=== PATIENT | male | born 1980 | race Caucasian/White ===

== ENCOUNTER → 2017-11-05 | Outpatient (CLI) | payer BC ==
[~2017-11-05] MED LIST: CALAMINE LOTIO177 ML TP; DEXILANT60 MG PO; LAMICTAL100 MG PO; PREDNISONE20 MG PO; SERTRALINE HCL100 MG PO; ZANTAC150 MG PO; ZYRTEC10 MG PO
--- NOTE | 2017-11-05 14:52 | Diagnostic Imaging Report ---
Indications: Left-sided testicular pain Technique: Grayscale and duplex images of the scrotum Comparison: none Findings:The right testicle measures 5cm in length by 2 cm AP by 4.2 cm transverse. It demonstrates normal echogenicity. Normal Doppler flow. Normal epididymis. The left testicle measures 3.1 cm in length by 1.3 cm AP by 1.9 cm transverse. It demonstrates decreased and heterogeneous echogenicity. No flow seen within the left testicle on Doppler imaging. Normal-appearing epididymal tail, epididymal head not well demonstrated but appears grossly unremarkable.. No definite inguinal hernia demonstrated on either side Impression: Atrophic heterogeneous left testicle, with absent flow, concerning for torsion, likely chronic given the extent of volume loss Normal right testicle No definite inguinal hernia demonstrated Findings discussed by phone with Dr. Torres at the time the exam was performed
== END | disposition home or self-care (01) ==
LOC: ULS 10:53
DX: N50.812 Left testicular pain (principal)
CPT/HCPCS: 76870